=== PATIENT | female | born 1930 | race Caucasian/White ===

== ENCOUNTER → 2017-02-24 | Outpatient (CLI) | payer MEDICARE, BC | END | disposition home or self-care (01) | LOC: PCVCCLINIC 13:10 | PROVIDERS: ATTEND Internal Medicine Cardiovascular Disease | DX: E78.5 Hyperlipidemia, unspecified (principal); E78.1 Pure hyperglyceridemia; I10 Essential (primary) hypertension; I87.2 Venous insufficiency (chronic) (peripheral); R00.2 Palpitations | CPT/HCPCS: 80061; 93005; G0463 ==